=== PATIENT | male | born 1950 | race Caucasian/White ===

== ENCOUNTER 2018-04-18 02:48 | Emergency (ER) | payer MEDICARE ==
[~2018-04-18] VITALS: Ht 172.7 cm; Wt 90.7 kg
[2018-04-18 02:48] VITALS: BP_SYST 152
--- NOTE | 2018-04-18 02:49 | NUR ---
Placed in room 2 . Placed on brickmason apprentice, blood pressure machine and pulse oximeter. To gown for exam. Side rails up.
[2018-04-18] MEDS ORDERED: NACL 0.9% 1,000 ML IV ONE (02:54)
--- NOTE | 2018-04-18 02:55 | NUR ---
Pt came into ED for a hypoglycemic episode for a blood sugar of 53 in the field. EMS said that pt was combative and uncooperative in the field. Pt is observed to be awake, alert and cooperative. Pt's blood sugar in the ED is 175. Pt reports that he was in the ED for hypoglycemia a few weeks ago due to the new change of insulin dosage. Denies SOB, chest pain, n/v/d or fever. Pt reports to have drank one beer earlier this evening. No other complaints/injuries noted. Will cont. to monitor.
--- NOTE | 2018-04-18 03:00 | NUR ---
ER at bedside examining patient.
--- NOTE | 2018-04-18 03:31 | NUR ---
Pt started on IVF per MD order. Tolerating well. Will cont. to monitor.
[2018-04-18 03:41] LABS: BASOPHILS % (AUTO) 0.3 % (0.0-2.0); EOSINOPHILS # (AUTO) 0.2 K/uL (0.0-0.4); EOSINOPHILS % (AUTO) 3.1 % (0.0-4.0); HEMATOCRIT 45.8 % (36-54); HEMOGLOBIN 15.4 g/dL (14.0-18.0); LYMPHOCYTES # (AUTO) 1.3 K/uL (1.0-5.5); LYMPHOCYTES % (AUTO) 17.8 % (20.5-51.5); MEAN CORPUSCULAR HEMOGLOBIN 32 pg (27-31); MEAN CORPUSCULAR HGB CONC 34 % (32-36); MEAN CORPUSCULAR VOLUME 95 fL (79.0-98.0); MONOCYTES # (AUTO) 0.6 K/uL (0.0-1.0); MONOCYTES % (AUTO) 8.1 % (1.7-9.3); NEUTROPHILS # (AUTO) 5.1 K/uL (1.8-7.7); NEUTROPHILS % (AUTO) 70.7 % (40.0-70.0); PLATELET COUNT (AUTO) 202 K/uL (130-430); RED BLOOD CELL COUNT(AUTO) 4.82 MIL/uL (4.2-6.2); RED CELL DISTRIBUTION WIDTH 12.1 % (9.0-15.0); WHITE BLOOD COUNT (AUTO) 7.2 K/uL (4.8-10.8)
[2018-04-18 03:44] LABS: ANION GAP 11 (5-15); CALCIUM 8.3 mg/dL (8.4-11.0); CHLORIDE 99 mmol/L (98-107); CREATININE 0.91 mg/dL (0.55-1.30); GLUCOSE 182 mg/dL (70-99); SODIUM SERUM 134 mmol/L (136-145); UREA NITROGEN, BLOOD 15 mg/dL (8-21)
[2018-04-18 03:47] LABS: INR 0.9 (0.80-1.20); PROTHROMBIN TIME 9.7 SECS (9.5-12.5)
[2018-04-18 03:50] LABS: ALANINE AMINOTRANSFERASE 28 U/L (12-78); ALBUMIN 3.7 g/dL (3.4-4.8); ASPARTATE AMINOTRANSFERASE 21 U/L (10-37); LIPASE 91 U/L (73-393); TOTAL BILIRUBIN 0.4 mg/dL (0.0-1.0)
[2018-04-18 04:00] LABS: ALCOHOL, BLOOD < 3 mg/dL (<10); GFR AFRICAN AMERICAN 107 mL/min (>90)
[2018-04-18 04:53] VITALS: BP_SYST 152
--- NOTE | 2018-04-18 04:53 | NUR ---
Patient given written and verbal discharge instructions and verbalizes understanding. ER MD Dr. Resendez discussed with patient the results and treatment provided. Patient in stable condition. ID arm band removed. IV catheter removed intact and dressing applied, no active bleeding. Patient educated on pain management and to follow up with PMD within 2-3 days. Pain Scale 0/10. Opportunity for questions provided and answered. Medication side effect fact sheet provided.
== END 2018-04-18 04:53 | disposition home or self-care (01) ==
LOC: SED 02:48
DX: E11.649 Type 2 diabetes mellitus with hypoglycemia without coma (principal); I10 Essential (primary) hypertension
CPT/HCPCS: 36415; 71045; 80053; 82550; 83605; 83690; 84484; 85025; 85610; 85730; 87040; 96360; 99284; G0482; J7030

== ENCOUNTER 2018-12-09 14:19 | Emergency (ER) | payer MEDICARE ==
[~2018-12-09] VITALS: Ht 170.2 cm; Wt 86.2 kg
--- NOTE | 2018-12-09 14:21 | NUR ---
Placed in room 02 . Placed on telemetry monitor, blood pressure machine and pulse oximeter. To gown for exam. Side rails up.
[2018-12-09 14:24] VITALS: BP_SYST 139
--- NOTE | 2018-12-09 14:28 | NUR ---
ER Dr. Freeman at bedside examining patient.
[2018-12-09] MEDS ORDERED: KETOROLAC TROMETHAMINE 60 MG/2 ML VIAL IM ONE (14:30)
--- NOTE | 2018-12-09 14:37 | NUR ---
Patient is awake, alert, and oriented x4. Patient reports that he had left sided chest pain. Patient denies nausea, vomiting, diarrhea, blurry vision, SOB. Patient denies any pain at this time and does not wish to have any pain medication.
[2018-12-09 14:51] LABS: BASOPHILS % (AUTO) 0.7 % (0.0-2.0); EOSINOPHILS # (AUTO) 0.2 K/uL (0.0-0.4); EOSINOPHILS % (AUTO) 2.8 % (0.0-4.0); HEMATOCRIT 39.3 % (36-54); HEMOGLOBIN 13.5 g/dL (14.0-18.0); LYMPHOCYTES # (AUTO) 1.6 K/uL (1.0-5.5); LYMPHOCYTES % (AUTO) 29.2 % (20.5-51.5); MEAN CORPUSCULAR HEMOGLOBIN 32 pg (27-31); MEAN CORPUSCULAR HGB CONC 34 % (32-36); MEAN CORPUSCULAR VOLUME 94 fL (79.0-98.0); MONOCYTES # (AUTO) 0.6 K/uL (0.0-1.0); MONOCYTES % (AUTO) 10.7 % (1.7-9.3); NEUTROPHILS # (AUTO) 3.1 K/uL (1.8-7.7); NEUTROPHILS % (AUTO) 56.6 % (40.0-70.0); PLATELET COUNT (AUTO) 231 K/uL (130-430); RED BLOOD CELL COUNT(AUTO) 4.19 MIL/uL (4.2-6.2); RED CELL DISTRIBUTION WIDTH 13.6 % (9.0-15.0); WHITE BLOOD COUNT (AUTO) 5.5 K/uL (4.8-10.8)
[2018-12-09 15:04] LABS: CALCIUM 9.3 mg/dL (8.4-11.0); CREATININE 0.89 mg/dL (0.55-1.30); POTASSIUM 4.3 mmol/L (3.5-5.1)
[2018-12-09 15:09] LABS: ALBUMIN 3.7 g/dL (3.4-4.8); TOTAL BILIRUBIN 0.5 mg/dL (0.0-1.0)
[2018-12-09 15:32] VITALS: BP_SYST 139
--- NOTE | 2018-12-09 15:32 | NUR ---
Patient given written and verbal discharge instructions and verbalizes understanding. ER MD discussed with patient the results and treatment provided. Patient in stable condition. ID arm band removed. Patient educated on pain management and to follow up with PMD. Pain Scale 0/10. Opportunity for questions provided and answered. Medication side effect fact sheet provided.
== END 2018-12-09 15:32 | disposition home or self-care (01) ==
LOC: SED 14:19
DX: R07.89 Other chest pain (principal); E11.9 Type 2 diabetes mellitus without complications; I10 Essential (primary) hypertension; Z91.030 Bee allergy status
CPT/HCPCS: 36415; 71045; 80053; 82550-TC; 83880; 84484; 85025; 93005; 99284